=== PATIENT | female | born 1980 | race African-American/Black ===

== ENCOUNTER 2018-11-24 08:35 | Emergency (ER) | payer OTHER ==
[~2018-11-24] VITALS: Ht 157.5 cm; Wt 56.0 kg
[~2018-11-24 08:35] MED LIST: PREN1COM
[2018-11-24 14:05] VITALS: BP 127/70
== END 2018-11-24 14:08 | disposition home or self-care (01) ==
LOC: ER 08:35
DX: R10.84 Generalized abdominal pain (principal); N93.9 Abnormal uterine and vaginal bleeding, unspecified; W10.8XXA Fall (on) (from) other stairs and steps, initial encounter; Y93.01 Activity, walking, marching and hiking; Y92.89 Other specified places as the place of occurrence of the external cause; F17.210 Nicotine dependence, cigarettes, uncomplicated
CPT/HCPCS: 81025; 99282

== ENCOUNTER 2022-10-18 10:47 | Emergency (ER) | payer OTHER ==
[~2022-10-18] VITALS: Ht 165.1 cm; Wt 59.0 kg
[2022-10-18 10:50] VITALS: BP 112/46
== END 2022-10-18 12:46 | disposition left against medical advice (07) ==
LOC: ER 10:50
DX: Z53.21 Procedure and treatment not carried out due to patient leaving prior to being seen by health care provider (principal)
CPT/HCPCS: 99281

== ENCOUNTER 2025-04-20 23:24 | Inpatient (IN) | payer MEDICAID, OTHER ==
[~2025-04-20] VITALS: Ht 167.6 cm; Wt 59.2 kg
[2025-04-20 23:29] VITALS: O2SAT 100
[2025-04-21] VITALS (10 sets, daily range): BP systolic 104–139; BP diastolic 47–69; PULSE 57–104; RESP 17–20; TEMP 36.3–36.9474; O2SAT 96–100
[2025-04-21 00:09] LABS: BASOPHILS % 2.8 % (0.0-2.0); EOSINOPHILS % 10.6 % (0.0-5.0); LYMPHOCYTES % 43.0 % (20.0-50.0); MEAN PLATELET VOLUME 8.2 fl (7.4-10.4); MONOCYTES % 9.4 % (2.0-8.0); NEUTROPHILS % 34.2 % (40.0-76.0); PLATELET 121 x1000/uL (130-400); RED BLOOD CELL COUNT 2.86 mill/uL (4.2-5.4); RED CELL DISTRIBUTION WIDTH 23.7 % (11.6-14.6)
[2025-04-21 00:13] LABS: HEMATOCRIT. 17.6 % (36.0-48.0); HEMOGLOBIN. 4.7 g/dL (12.0-16.0)
[2025-04-21 00:14] LABS: ADD RBC MORPHOLOGY YES
[2025-04-21 00:24] LABS: CREATININE 0.7 mg/dL (0.6-1.0)
[2025-04-21 00:25] LABS: UREA NITROGEN BLOOD 9 mg/dL (9-23)
[2025-04-21 00:26] LABS: ASPARTATE AMINOTRANSFERASE 21 IU/L (<34)
[2025-04-21 00:27] LABS: BILIRUBIN DIRECT < 0.1 mg/dL (<=3.0); BILIRUBIN TOTAL 0.2 mg/dL (0.1-1.0); PROTEIN TOTAL 6.5 g/dL (6.0-8.3)
[2025-04-21 00:37] LABS: HCG SCREEN NEGATIVE
[2025-04-21 00:56] LABS: CLARITY URINE CLEAR (CLEAR); COLOR URINE YELLOW (YELLOW); GLUCOSE URINE NEGATIVE (NEGATIVE); KETONES URINE TRACE (NEGATIVE); LEUKOCYTE ESTERASE URINE NEGATIVE (NEGATIVE); NITRITE URINE NEGATIVE (NEGATIVE); OCCULT BLOOD URINE 3+ (NEGATIVE); PH URINE 5.5 (4.5-8.0); PROTEIN URINE TRACE (NEGATIVE); SPECIFIC GRAVITY URINE 1.022 (1.005-1.030); UROBILINOGEN URINE 1.0 E.U./dL (0.2-1.0)
[2025-04-21] MEDS: SODIUM CHLORIDE 0.9% 1,000 ML IV ONE (01:34)
[2025-04-21 02:46] LABS: PLATELET ESTIMATE SLIGHTLY DECREASED
[2025-04-21 03:34] LABS: SQUAMOUS EPITHELIAL CELL URINE 1+ /lpf (RARE/1+)
[2025-04-21 03:35] LABS: WBC URINE 0-2 /hpf (0-2)
[2025-04-21 03:36] LABS: BACTERIA URINE NONE SEEN
[2025-04-21 03:38] LABS: CALCIUM OXALATE CRYSTALS URINE 1+ /lpf
[2025-04-21] MEDS ORDERED: ACETAMINOPHEN 325MG TABLET PO PRN ×4 (06:15→10:00)
[2025-04-21] MEDS: PANTOPRAZOLE 40MG DR TABLET PO SCH (09:00)
[2025-04-21 09:08] LABS: FOLIC ACID (FOLATE) SERUM > 20.00 ng/mL (>5.38); VITAMIN B12 SERUM 567 pg/mL (211-911)
[2025-04-21 09:09] LABS: T4 FREE 0.96 ng/dL (0.89-1.76)
[2025-04-21] MEDS ORDERED: IPRATROPIUM/ALBUTEROL 0.5-3(2.5)MG/3ML NEB NEB PRN (10:00)
[2025-04-21] MEDS ORDERED: DOCUSATE SODIUM 100MG CAPSULE PO PRN (10:00)
[2025-04-21] MEDS ORDERED: ONDANSETRON HCL 4MG/2ML INJ IV PRN (10:00)
[2025-04-21] MEDS ORDERED: GUAIFENESIN 200MG/10ML SUGAR FREE UDC PO PRN (10:00)
[2025-04-21] MEDS ORDERED: CLONIDINE 0.1MG TABLET PO PRN (10:00)
[2025-04-21] MEDS ORDERED: LORAZEPAM 0.5MG TABLET PO PRN (10:00)
[2025-04-21] MEDS ORDERED: NA PHOS,M-B/NA PHOS,DI-BA ENEMA 118ML PR PRN (10:00)
[2025-04-21] MEDS ORDERED: MAGNESIUM/ALUMINUM HYDROXIDE/SIMETHICONE 30ML UDC PO PRN (10:00)
[2025-04-21] MEDS ORDERED: DIPHENHYDRAMINE 50MG/ML VIAL IV PRN (10:00)
[2025-04-21] MEDS: HYDROCODONE/ACETAMINOPHEN 5/325MG TABLET PO PRN (16:41)
[2025-04-21] MEDS: TRANEXAMIC ACID 1000MG PREMIX 100 ML IV SCH (17:23)
[2025-04-22 04:00] VITALS: BP 112/58; PULSE 72; RESP 18; TEMP 36.8; O2SAT 99
[2025-04-22] MEDS: PANTOPRAZOLE 40MG DR TABLET PO SCH (06:58)
[2025-04-22 08:00] VITALS: BP 124/52; PULSE 68; RESP 16; TEMP 36.4; O2SAT 100
[2025-04-22 08:22] LABS: BASOPHILS % 2.3 % (0.0-2.0); EOSINOPHILS % 7.3 % (0.0-5.0); HEMATOCRIT. 27.7 % (36.0-48.0); HEMOGLOBIN. 8.2 g/dL (12.0-16.0); LYMPHOCYTES % 19.6 % (20.0-50.0); MEAN PLATELET VOLUME 8.6 fl (7.4-10.4); MONOCYTES % 8.6 % (2.0-8.0); NEUTROPHILS % 62.2 % (40.0-76.0); PLATELET 103 x1000/uL (130-400); RED BLOOD CELL COUNT 4.03 mill/uL (4.2-5.4); RED CELL DISTRIBUTION WIDTH 27.0 % (11.6-14.6)
[2025-04-22 08:32] LABS: CREATININE 0.5 mg/dL (0.6-1.0); UREA NITROGEN BLOOD 5 mg/dL (9-23)
[2025-04-22] MEDS ORDERED: NALOXONE HCL 0.4MG/ML VIAL IV PRN (10:45)
[2025-04-22] MEDS ORDERED: ASCO-339 MT (11:29)
[2025-04-22] MEDS ORDERED: FERR-71 MT (11:29)
[2025-04-22 12:00] VITALS: BP 111/60; PULSE 65; RESP 16; TEMP 36.4; O2SAT 100
[2025-04-22] MEDS ORDERED: FERROUS SULFATE 325MG TABLET PO SCH (12:15)
[2025-04-22 13:56] VITALS: BP 111/60; PULSE 65; RESP 16; TEMP 97.5
[2025-04-22] MEDS ORDERED: ASCORBIC ACID 500 MG TABLET PO SCH (21:00)
== END 2025-04-22 14:45 | disposition home or self-care (01) | DRG 532 ==
LOC: ER 23:24 → 5WST 04-21 02:25 → EDBEDREQ 04-21 02:31 → EDBEDREQTM 04-21 02:31 → ENRESERV 04-21 02:41
PROVIDERS: ADMIT Internal Medicine; ATTEND Internal Medicine
PROC: 30233N1 Transfusion of Nonautologous Red Blood Cells into Peripheral Vein, Percutaneous Approach (ICD-10-PCS; principal; 2025-04-21)
DX: N93.9 Abnormal uterine and vaginal bleeding, unspecified (principal); K74.60 Unspecified cirrhosis of liver; D25.9 Leiomyoma of uterus, unspecified; D64.9 Anemia, unspecified; E61.1 Iron deficiency; N92.0 Excessive and frequent menstruation with regular cycle; N83.202 Unspecified ovarian cyst, left side; J45.909 Unspecified asthma, uncomplicated; Z79.899 Other long term (current) drug therapy
CPT/HCPCS: 36415; 36430; 76856; 80048; 80076; 81003; 82330; 82607; 82746; 83540; 83550; 84439; 84443; 84703; 85014; 85018; 85025; 86850; 86900; 86920; 93005; 96360; 99291; J7030; P9016